=== PATIENT | male | born 1995 | race American Indian/Alaskan Native ===

== ENCOUNTER 2016-08-06 14:27 | Emergency (ER) | payer OTHER ==
[~2016-08-06] VITALS: Ht 172.7 cm; Wt 54.7 kg
[~2016-08-06 14:27] MED LIST: ANT25 PO
[2016-08-06 14:37] VITALS: TEMP 36.9; Ht 172.7 cm; Wt 54.7 kg
[2016-08-06] MEDS ORDERED: OXYCODONE HCL IR 5 MG TAB (IMMEDIATE RELEASE) PO STA (14:52)
[2016-08-06] MEDS ORDERED: ACETAMINOPHEN 500 MG TAB PO STA (14:52)
--- NOTE | 2016-08-06 15:25 | DIAGNOSTIC IMAGING REPORT ---
CT SCAN OF THE BRAIN WITHOUT IV CONTRAST CLINICAL HISTORY: Headache. Seizure. COMPARISON STUDY: CT of the brain dated 02/06/2015. TECHNIQUE: Unenhanced axial CT scan of the brain is performed from the vertex to the skull base. Automated dose control exposure was utilized. CT DOSE: 979.52 mGy.cm FINDINGS: Brain parenchyma: The brain parenchyma is normal in appearance. There is no hemorrhage, mass effect, or evidence of acute territorial ischemia by CT criteria. Hood-white matter is preserved. No extra-axial fluid collection is seen. Ventricles, sulci, cisterns: Normal in configuration. Intracranial vasculature: The visualized intracranial vasculature at the skull base is normal in appearance. Calvarium: Unremarkable. Sinuses and mastoids: The visualized paranasal sinuses are clear. The mastoid air cells are well pneumatized. Orbits: The bony orbits are grossly intact. IMPRESSION: No acute intracranial abnormality. Electronically signed by: Juni Ornelas M.D. 08/06/2016 3:24 PM Dictated Date/Time: 08/06/2016 3:22 PM
--- NOTE | 2016-08-06 15:51 | DIAGNOSTIC IMAGING REPORT ---
CT OF THE CERVICAL SPINE CLINICAL HISTORY: Neck pain status post trauma COMPARISON STUDY: Conventional radiographic study dated 04/14/2015 CT DOSE: TECHNIQUE: CT scan of the cervical spine was performed from the skull base to the thoracic inlet. Images are reviewed in the axial, sagittal, and coronal planes. IV contrast was not administered for this examination. FINDINGS: The visualized portions of the lung apices reveal no evidence of pneumothorax. The prevertebral soft tissues are normal. No fractures or subluxations are visualized. The study is compromised due to motion artifact which is most pronounced at the C3 level. There is reversal normal cervical lordosis, likely secondary to muscle spasm or positioning. IMPRESSION: 1. Study compromised secondary to patient motion 2. Reversal of the normal cervical lordosis, likely secondary to muscle spasm or patient positioning 3. No acute fractures or traumatic subluxations identified Electronically signed by: Nabeel Machuca M.D. 08/06/2016 3:33 PM Dictated Date/Time: 08/06/2016 3:24 PM
--- NOTE | 2016-08-06 15:59 | EMERGENCY ROOM VISIT NOTE ---
History Report prepared by Martine: Gabi Tate Under the Supervision of: Dr. Ru Lyons M.D. First contact with patient: 14:45 Chief Complaint: SEIZURE Stated Complaint: SEIZURE, CONCUSSION History of Present Illness The patient is a 20 year old male who presents to the Emergency Room with complaints of a seizure occurring a few minutes prior to arrival. He has a history of seizures. His last seizure was about a month ago. He took his antiseizure medication as prescribed. He is not sure how long the seizure episode lasted today. He fell and hit his head. He currently complains of a headache and light sensitivity. He also reports tiredness. He denies any fevers , nausea, vomiting, abdominal pain, or any other complaints. He also denies any drug or alcohol use. Source of History: patient Onset: a few minutes prior to arrival Position: other (global) Quality: other (seizure) Associated Symptoms: + headache, No abdominal pain, No fevers, No nausea, No vomiting Review of Systems See HPI for pertinent positives & negatives. A total of 10 systems reviewed and were otherwise negative. Past Medical & Surgical Medical Problems: (1) Expressive aphasia syndrome (2) Seizure (3) Syncope (4) Syncope (5) Syncope (6) TIA (transient ischemic attack) (7) Vomiting (8) Vomiting Family History Diabetes mellitus Heart disease Social History Smoking Status: Never Smoker Alcohol Use: none Drug Use: none Marital Status: single Housing Status: lives with roommate Occupation Status: student Current/Historical Medications Scheduled PRN Meclizine HCl (Meclizine HCl), 1 TAB PO Q6 PRN for Dizziness or Vertigo Allergies Coded Allergies: No Known Allergies (Unverified , 08/06/16) Physical Exam Vital Signs Date Time Temp Pulse Resp B/P Pulse Ox O2 Delivery O2 Flow Rate FiO2 08/06/16 16:27 70 18 120/75 99 08/06/16 14:37 36.9 68 20 126/80 98 Room Air Physical Exam GENERAL: Patient is well appearing and in mild distress. HEAD: No acute trauma, normocephalic atraumatic. Tenderness behind the right mandible. ENT: Mucous membranes moist, no nasal congestion. EYES: Equal/Reactive Bilaterally, No scleral icterus, Normal ROM NECK: No nuchal rigidity, no meningismus, trachea is midline, full ROM LUNGS: No dyspnea. Clear to auscultation and equal bilaterally. No wheeze, no rhonchi. HEART: Regular rate and rhythm. No murmurs, rubs, gallops appreciated. ABDOMEN: Soft, nontender, bowel sounds positive, no masses appreciated, no peritonitis. BACK: No midline tenderness, no CVA tenderness EXTREMITIES: Normal motion all extremities, no cyanosis, no edema. NEUROLOGIC: Awake, Alert, Oriented, no acute motor or sensory deficits, no focal weakness, cranial nerves grossly intact. SKIN: No rash, no jaundice, no diaphoresis. Medical Decision & Procedures ER Provider Diagnostic Interpretation: CT results as stated below per interpretation by me and the radiologist: CT SCAN OF THE BRAIN WITHOUT IV CONTRAST CLINICAL HISTORY: Headache. Seizure. COMPARISON STUDY: CT of the brain dated 02/06/2015. TECHNIQUE: Unenhanced axial CT scan of the brain is performed from the vertex to the skull base. Automated dose control exposure was utilized. CT DOSE: 979.52 mGy.cm FINDINGS: Brain parenchyma: The brain parenchyma is normal in appearance. There is no hemorrhage, mass effect, or evidence of acute territorial ischemia by CT criteria. Hood-white matter is preserved. No extra-axial fluid collection is seen. Ventricles, sulci, cisterns: Normal in configuration. Intracranial vasculature: The visualized intracranial vasculature at the skull base is normal in appearance. Calvarium: Unremarkable. Sinuses and mastoids: The visualized paranasal sinuses are clear. The mastoid air cells are well pneumatized. Orbits: The bony orbits are grossly intact. IMPRESSION: No acute intracranial abnormality. Electronically signed by: Juni Ornelas M.D. 08/06/2016 3:24 PM Dictated Date/Time: 08/06/2016 3:22 PM Medications Administered Medications (Trade) Dose Ordered Sig/Stacy Route Start Time Stop Time Status Last Admin Dose Admin Oxycodone HCl (Roxicodone Immediate Rel Tab) 5 mg NOW STAT PO 08/06/16 14:52 08/06/16 14:54 DC 08/06/16 15:04 5 MG Acetaminophen (Tylenol Tab) 1,000 mg NOW STAT PO 08/06/16 14:52 08/06/16 14:54 DC 08/06/16 15:04 1,000 MG ED Course 1445: The patient was evaluated in room A03. A complete history and physical exam was performed. 1452: Tylenol Tab 1000 mg PO, Oxycodone HCl 5 mg PO 1604: Reevaluated the patient who is feeling much better. Discussed results and discharge instructions: He verbalized understanding and agreement. The patient is ready for discharge. His mother is at bedside. Medical Decision Differential: Headache, Migraine, Cluster Headache, Seizure, Meningitis, Sinusitis, CO exposure, ICH/SAH, Infectious, Tumor, Sinus Thrombosis, Arterial Dissection, amongst other pathologies entertained. 20 yr old male with long history of seizures already on lamictal and previous seizure 1 month ago. Another seizure today with striking head. Since with headache and some photophobia. He has no evidnece of meningitis. No focal neuro deficits. Does have some mild right neck pain with no midline TTP nor neuro deficits. CT head/cspine negative for acute injury. He is feeling vastly improved and smiling/laughing. Likely concussion and post seizure headache. With feeling well and no fever nor another other findings seems reasonable treating conservatively. Will be going home with mother. The patient is well hydrated, happy, breathing comfortably and in no distress. They are not septic and are stable at discharge. Impression Primary Impression: Concussion Additional Impressions: Head injury, closed Status post seizure Scribe Attestation The scribe's documentation has been prepared under my direction and personally reviewed by me in its entirety. I confirm that the note above accurately reflects all work, treatment, procedures, and medical decision making performed by me. Departure Information Dispostion Home / Self-Care Referrals [facility] (PCP) Forms HOME CARE DOCUMENTATION FORM, IMPORTANT VISIT INFORMATION Patient Instructions ED Concussion, My [facility] Additional Instructions Continue to follow with [facility] for further evaluation. Rest and keep well hydrated over the next few days. Problem Qualifiers Primary Impression: Concussion Encounter type: initial encounter Loss of consciousness presence/duration: without LOC Qualified Codes: S06.0X0A - Concussion without loss of consciousness, initial encounter Additional Impressions: Head injury, closed Encounter type: initial encounter Qualified Codes: S09.90XA - Unspecified injury of head, initial encounter
[2016-08-06 16:27] VITALS: BP 120/75; PULSE 70; O2SAT 99
== END 2016-08-06 16:28 | disposition home or self-care (01) ==
LOC: C.EDB 14:30 → C.EDA 16:28
DX: S06.0X0A Concussion without loss of consciousness, initial encounter (principal); W19.XXXA Unspecified fall, initial encounter; R56.9 Unspecified convulsions; Z86.73 Personal history of transient ischemic attack (TIA), and cerebral infarction without residual deficits; F80.1 Expressive language disorder; Z83.3 Family history of diabetes mellitus; Z82.49 Family history of ischemic heart disease and other diseases of the circulatory system; Z79.899 Other long term (current) drug therapy

== ENCOUNTER 2017-09-03 17:00 | Emergency (ER) | payer OTHER ==
[~2017-09-03] VITALS: Ht 175.3 cm; Wt 64.5 kg
[2017-09-03 17:08] VITALS: TEMP 37.1; O2SAT 98; Ht 175.3 cm; Wt 64.5 kg
[2017-09-03] MEDS ORDERED: SODIUM CHLORIDE 0.9% 1000ML 1,000 ML IV STA (17:09)
--- NOTE | 2017-09-03 17:20 | EMERGENCY ROOM VISIT NOTE ---
History Report prepared by Martine: Oralia Quinonez Under the Supervision of: Dr. Ru Lyons M.D. First contact with patient: 17:02 Chief Complaint: SEIZURE Stated Complaint: SEIZURE History of Present Illness The patient is a 21 year old male who presents to the Emergency Room with complaints of an episode of seizure occurring 35 minutes [employer]. Per EMS, the patient was in class. He was called up to the front of the class and he fell and began seizing. Witnesses reported that seizure-like activity lasted for about 30 seconds. The patient is currently complaining of a right-sided headache and generalized pain. He has a history of seizures and is on Lamictal. He states that he has had a seizure in the past couple of months. The HPI is limited secondary to post ictal state. Source of History: patient, EMS History Limited By: other (post-ictal) Onset: 35 minutes [employer] Position: other (global) Quality: other (seizure) Timing: other (episode) Modifying Factors (Relieving): other (time) Associated Symptoms: + headache Review of Systems Limited secondary to post-ictal state. Past Medical & Surgical Medical Problems: (1) Expressive aphasia syndrome (2) Seizure (3) Syncope (4) Syncope (5) Syncope (6) TIA (transient ischemic attack) (7) Vomiting (8) Vomiting Family History Diabetes mellitus Heart disease Social History Smoking Status: Never Smoker Alcohol Use: none Drug Use: none Marital Status: single Housing Status: lives with roommate Occupation Status: student Current/Historical Medications Scheduled Lamotrigine (Lamictal), 150 MG PO BID Topiramate (Topamax), 100 MG PO BID Scheduled PRN Meclizine HCl (Meclizine HCl), 1 TAB PO Q6 PRN for Dizziness or Vertigo Allergies Coded Allergies: No Known Allergies (Unverified , 09/03/17) Physical Exam Vital Signs Date Time Temp Pulse Resp B/P (MAP) Pulse Ox O2 Delivery O2 Flow Rate FiO2 09/03/17 19:03 65 18 121/77 98 09/03/17 17:08 37.1 73 12 113/76 96 Room Air 09/03/17 17:08 98 Room Air Physical Exam GENERAL: Patient is post ictal, tired appearing. EYES: No scleral icterus, unremarkable pupils. ENT: Mucous membranes moist, no nasal congestion. NECK: No masses appreciated, no meningismus, trachea is midline. RESPIRATORY: No dyspnea. Clear to auscultation and equal bilaterally. No wheeze , no rhonchi. CARDIOVASCULAR: Regular rate and rhythm. No murmurs, rubs, gallops appreciated. GASTROINTESTINAL: Abdomen soft, nontender, no peritonitis. Bowel sounds positive. No masses appreciated. BACK: No midline tenderness, no CVA tenderness EXTREMITIES: Normal motion all extremities, no cyanosis, no edema. NEUROLOGIC: Pt post ictal, answering questions in simple one word sentences. No acute motor or sensory deficits, no focal weakness, cranial nerves grossly intact. SKIN: No rash, no jaundice, no diaphoresis. Medical Decision & Procedures ER Provider Diagnostic Interpretation: Radiology results and stated below per my review and radiologist interpretation: HEAD WITHOUT CONTRAST (CT) CT DOSE: 537.48 mGy.cm HISTORY: Seizure seizure, post - ictal TECHNIQUE: Multiaxial CT images of the head were performed without the use of intravenous contrast. A dose lowering technique was utilized adhering to the principles of ALARA. Comparison: 08/06/2016 Findings: The paranasal sinuses and mastoid air cells are clear. The calvarium and skull base are intact. The ventricles and sulci are within normal limits. There is no mass, hematoma, midline shift, or acute infarct. Impression: No acute intracranial abnormality. The above report was generated using voice recognition software. It may contain grammatical, syntax or spelling errors. Electronically signed by: Shaji Metcalf M.D. 09/03/2017 5:33 PM Dictated Date/Time: 09/03/2017 5:32 PM Laboratory Results 09/03/17 16:51 Red Blood Count 5.41, Mean Corpuscular Volume 82.3, Mean Corpuscular Hemoglobin 28.7, Mean Corpuscular Hemoglobin Concent 34.8, Mean Platelet Volume 11.9, Neutrophils (%) (Auto) 54.4, Lymphocytes (%) (Auto) 37.8, Monocytes (%) (Auto) 6.9, Eosinophils (%) (Auto) 0.5, Basophils (%) (Auto) 0.2, Neutrophils # (Auto) 3.31, Lymphocytes # (Auto) 2.30, Monocytes # (Auto) 0.42, Eosinophils # (Auto) 0.03, Basophils # (Auto) 0.01 09/03/17 16:51 Test 09/03/17 16:51 White Blood Count 6.08 K/uL (4.8-10.8) Red Blood Count 5.41 M/uL (4.7-6.1) Hemoglobin 15.5 g/dL (14.0-18.0) Hematocrit 44.5 % (42-52) Mean Corpuscular Volume 82.3 fL (80-100) Mean Corpuscular Hemoglobin 28.7 pg (25-34) Mean Corpuscular Hemoglobin Concent 34.8 g/dl (32-36) Platelet Count 179 K/uL (130-400) Mean Platelet Volume 11.9 fL (7.4-10.4) Neutrophils (%) (Auto) 54.4 % Lymphocytes (%) (Auto) 37.8 % Monocytes (%) (Auto) 6.9 % Eosinophils (%) (Auto) 0.5 % Basophils (%) (Auto) 0.2 % Neutrophils # (Auto) 3.31 K/uL (1.4-6.5) Lymphocytes # (Auto) 2.30 K/uL (1.2-3.4) Monocytes # (Auto) 0.42 K/uL (0.11-0.59) Eosinophils # (Auto) 0.03 K/uL (0-0.5) Basophils # (Auto) 0.01 K/uL (0-0.2) RDW Standard Deviation 41.4 fL (36.4-46.3) RDW Coefficient of Variation 13.8 % (11.5-14.5) Immature Granulocyte % (Auto) 0.2 % Immature Granulocyte # (Auto) 0.01 K/uL (0.00-0.02) Anion Gap 8.0 mmol/L (3-11) Est Creatinine Clear Calc Drug Dose 105.5 ml/min Estimated GFR () 122.7 Estimated GFR (Non- 105.8 BUN/Creatinine Ratio 13.8 (10-20) Calcium Level 9.3 mg/dl (8.5-10.1) Laboratory results as reviewed by me. Medications Administered Medications (Trade) Dose Ordered Sig/Stacy Route Start Time Stop Time Status Last Admin Dose Admin Sodium Chloride 1,000 ml @ 999 mls/hr Q1H1M STAT IV 09/03/17 17:09 09/03/17 18:09 DC 09/03/17 17:18 999 MLS/HR ED Course 1703: The patient was evaluated in room C9. A complete history and physical exam was performed. 170: NSS 1000 ml @ 999 mls/hr IV 1759: The patient is no longer post ictal. He is tired but answering all questions and aware of where he is. 185: I reassessed the patient at this time. He is feeling better and resting comfortably. I discussed the results and treatment plan with the patient. I answered all pertaining questions that he had. He expressed understanding and verbalized agreement. The patient will be discharged home. Medical Decision 21 yr old male arrives for evaluation following seizure while in class. Arrives quite post ictal though after some time and IV fluids patient back to normal. He initial had CT head given post-ictal which was negative along with labs were were unremarkable. Patient looks well, no distress, no further headache, neck pain, nor other complaints. Exam not consistent with meningitis. No suggestion of dissection nor thrombosis. Denies drug/etoh use. Is not septic. Wishes to go home and friends here to take him. Does not drive. States parents are aware of what happened. Medication Reconcilliation Current Medication List: was personally reviewed by me Blood Pressure Screening Patient's blood pressure: Normal blood pressure Impression Primary Impression: Seizure Additional Impression: Post-ictal state Scribe Attestation The scribe's documentation has been prepared under my direction and personally reviewed by me in its entirety. I confirm that the note above accurately reflects all work, treatment, procedures, and medical decision making performed by me. Departure Information Dispostion Home / Self-Care Referrals [facility] (PCP) Forms HOME CARE DOCUMENTATION FORM, IMPORTANT VISIT INFORMATION Patient Instructions ED Seizure Recurrent, My [facility] Problem Qualifiers
[2017-09-03 17:21] LABS: BASO % 0.2 %; BASO ABS # 0.01 K/uL (0-0.2); EOS % 0.5 %; EOS ABS # 0.03 K/uL (0-0.5); HEMATOCRIT 44.5 % (42-52); HEMOGLOBIN 15.5 g/dL (14.0-18.0); IG# 0.01 K/uL (0.00-0.02); LYMPH % 37.8 %; MEAN CELL VOLUME 82.3 fL (80-100); MEAN CORPUSCULAR HEMOGLOBIN 28.7 pg (25-34); MEAN CORPUSCULAR HGB CONC 34.8 g/dl (32-36); MEAN PLATELET VOLUME 11.9 fL (7.4-10.4); MONO % 6.9 %; MONO ABS # 0.42 K/uL (0.11-0.59); NEUT % 54.4 %; NEUT ABS # 3.31 K/uL (1.4-6.5); PLATELET COUNT 179 K/uL (130-400); RED CELL DISTRIBUTION WIDTH CV 13.8 % (11.5-14.5); RED CELL DISTRIBUTION WIDTH SD 41.4 fL (36.4-46.3); WHITE BLOOD COUNT 6.08 K/uL (4.8-10.8)
--- NOTE | 2017-09-03 17:35 | DIAGNOSTIC IMAGING REPORT ---
HEAD WITHOUT CONTRAST (CT) CT DOSE: 537.48 mGy.cm HISTORY: Seizure seizure, post - ictal TECHNIQUE: Multiaxial CT images of the head were performed without the use of intravenous contrast. A dose lowering technique was utilized adhering to the principles of ALARA. Comparison: 08/06/2016 Findings: The paranasal sinuses and mastoid air cells are clear. The calvarium and skull base are intact. The ventricles and sulci are within normal limits. There is no mass, hematoma, midline shift, or acute infarct. Impression: No acute intracranial abnormality. The above report was generated using voice recognition software. It may contain grammatical, syntax or spelling errors. Electronically signed by: Shaji Metcalf M.D. 09/03/2017 5:33 PM Dictated Date/Time: 09/03/2017 5:32 PM
[2017-09-03 17:41] LABS: CALCIUM 9.3 mg/dl (8.5-10.1); CREATININE 1.01 mg/dl (0.60-1.40); POTASSIUM 3.9 mmol/L (3.5-5.1)
[2017-09-03] MEDS ORDERED: LMC/150 PO (18:26)
[2017-09-03] MEDS ORDERED: TOPI100T20 PO (18:26)
[2017-09-03 19:03] VITALS: BP 121/77; PULSE 65; O2SAT 98
== END 2017-09-03 19:04 | disposition home or self-care (01) ==
LOC: EDBD 17:00 → C.EDC 17:01
DX: R56.9 Unspecified convulsions (principal); F80.1 Expressive language disorder; Z86.73 Personal history of transient ischemic attack (TIA), and cerebral infarction without residual deficits

== ENCOUNTER 2017-09-27 17:28 | Emergency (ER) | payer OTHER ==
[~2017-09-27] VITALS: Ht 172.7 cm; Wt 57.0 kg
[~2017-09-27 17:28] MED LIST changes: +LMC/150 PO; +TOPI100T20 PO
[2017-09-27 17:30] VITALS: Ht 172.7 cm; Wt 57.0 kg
[2017-09-27] MEDS ORDERED: METOCLOPRAMIDE HCL INJ 5 MG/ML 2 ML VIAL IV STA (18:02)
[2017-09-27] MEDS ORDERED: SODIUM CHLORIDE 0.9% 1000ML 2,000 ML IV STA (18:02)
--- NOTE | 2017-09-27 18:05 | EMERGENCY ROOM VISIT NOTE ---
History Report prepared by Martine: Chrissy Sheridan Under the Supervision of: Dr. Chaz Sy M.D. First contact with patient: 17:54 Chief Complaint: SEIZURE Stated Complaint: SEIZURE Nursing Triage Summary: patient to ED via ALS was witnessed while having a seizure. Hx of seizures, taking lamictal. Had a seizure yesterday and one today while taking a test. Reported patient turned and hit his head against the wall, now c/o headache. Lethargic for EMS, alert & oriented in ED. 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 As per EMS, he was taking a test today when he had a seizure. It is reported that the patient hit his head against the wall. He states he has a headache, has dizziness, and drowsiness. He denies any neck pain or SOB. He reports he also had a seizure yesterday but did not come into the ED. He notes he has a history of seizures and they occur about once every month. He denies missing any of his Lamictal medications. His neurologist is Dr. Jn Nagel who is in [place]. 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 Review of Systems See HPI for pertinent positives and negatives. A total of ten systems were reviewed and were otherwise negative. Past Medical & Surgical Medical Problems: (1) Expressive aphasia syndrome (2) Seizure (3) Syncope (4) Syncope (5) Syncope (6) TIA (transient ischemic attack) (7) Vomiting (8) Vomiting Family History Diabetes mellitus Heart disease Social History Smoking Status: Never Smoker Alcohol Use: none Drug Use: none Marital Status: single Housing Status: lives with roommate Occupation Status: student Current/Historical Medications Scheduled Lamotrigine (Lamictal), 25 MG PO BID Lamotrigine (Lamictal), 100 MG PO BID Lamotrigine (Lamictal), 1 TAB PO BID Topiramate (Topamax), 100 MG PO BID Allergies Coded Allergies: No Known Allergies (Unverified , 09/27/17) Physical Exam Vital Signs Date Time Temp Pulse Resp B/P (MAP) Pulse Ox O2 Delivery O2 Flow Rate FiO2 09/27/17 22:25 36.9 68 16 105/72 98 09/27/17 21:39 61 09/27/17 20:19 69 16 114/73 98 Room Air 09/27/17 19:03 68 16 100/73 98 Room Air 09/27/17 18:53 54 14 98 Room Air 09/27/17 17:40 77 09/27/17 17:30 36.9 83 23 106/70 99 Room Air Physical Exam GENERAL: Awake, alert, drowsy-appearing, in no distress HENT: Normocephalic, atraumatic. Dry mucus membranes. EYES: Normal conjunctiva. Sclera non-icteric. NECK: Supple. No nuchal rigidity. FROM. No JVD. RESPIRATORY: Clear to auscultation. CARDIAC: Regular rate, normal rhythm. Extremities warm and well perfused. Pulses equal. ABDOMEN: Soft, non-distended. No tenderness to palpation. No rebound or guarding. No masses. RECTAL: Deferred. MUSCULOSKELETAL: Chest examination reveals no tenderness. The back is symmetrical on inspection without obvious abnormality. There is no CVA tenderness to palpation. No joint edema. LOWER EXTREMITIES: Calves are equal size bilaterally and non-tender. No edema. No discoloration. NEURO: Normal sensorium. No sensory or motor deficits noted. Normal cerebellar function with [id number], alternating palms, [id number] SKIN: No rash or jaundice noted. Medical Decision & Procedures ER Provider Diagnostic Interpretation: Radiology results as stated below per my review and radiologist interpretation: BRAIN WITHOUT CONTRAST HISTORY: Mental status change Sz, ARELLANO after head strike TECHNIQUE: Multiplanar multisequence MRI of the brain was performed without the use of contrast. COMPARISON STUDY: 02/06/2015. CT brain 09/03/2017 FINDINGS: There are no areas of restricted diffusion to suggest acute infarction. The midline structures are intact. The paranasal sinuses are clear. The mastoid air cells are clear. The ventricles and sulci are within normal limits for age. There is no mass, hematoma, midline shift. The major vascular flow-voids at the skull base are well maintained. IMPRESSION: No acute intracranial abnormality. The above report was generated using voice recognition software. It may contain grammatical, syntax or spelling errors. Electronically signed by: Shaji Metcalf M.D. 09/27/2017 8:16 PM Laboratory Results 09/27/17 00:00 Red Blood Count 5.45, Mean Corpuscular Volume 82.8, Mean Corpuscular Hemoglobin 28.1, Mean Corpuscular Hemoglobin Concent 33.9, Mean Platelet Volume 12.3, Neutrophils (%) (Auto) 61.0, Lymphocytes (%) (Auto) 30.6, Monocytes (%) (Auto) 7.2, Eosinophils (%) (Auto) 0.7, Basophils (%) (Auto) 0.2, Neutrophils # (Auto) 3.57, Lymphocytes # (Auto) 1.79, Monocytes # (Auto) 0.42, Eosinophils # (Auto) 0.04, Basophils # (Auto) 0.01 09/27/17 00:00 Test 09/27/17 00:00 White Blood Count 5.85 K/uL (4.8-10.8) Red Blood Count 5.45 M/uL (4.7-6.1) Hemoglobin 15.3 g/dL (14.0-18.0) Hematocrit 45.1 % (42-52) Mean Corpuscular Volume 82.8 fL (80-100) Mean Corpuscular Hemoglobin 28.1 pg (25-34) Mean Corpuscular Hemoglobin Concent 33.9 g/dl (32-36) Platelet Count 185 K/uL (130-400) Mean Platelet Volume 12.3 fL (7.4-10.4) Neutrophils (%) (Auto) 61.0 % Lymphocytes (%) (Auto) 30.6 % Monocytes (%) (Auto) 7.2 % Eosinophils (%) (Auto) 0.7 % Basophils (%) (Auto) 0.2 % Neutrophils # (Auto) 3.57 K/uL (1.4-6.5) Lymphocytes # (Auto) 1.79 K/uL (1.2-3.4) Monocytes # (Auto) 0.42 K/uL (0.11-0.59) Eosinophils # (Auto) 0.04 K/uL (0-0.5) Basophils # (Auto) 0.01 K/uL (0-0.2) RDW Standard Deviation 40.9 fL (36.4-46.3) RDW Coefficient of Variation 13.6 % (11.5-14.5) Immature Granulocyte % (Auto) 0.3 % Immature Granulocyte # (Auto) 0.02 K/uL (0.00-0.02) Anion Gap 7.0 mmol/L (3-11) Est Creatinine Clear Calc Drug Dose 75.4 ml/min Estimated GFR () 94.8 Estimated GFR (Non- 81.8 BUN/Creatinine Ratio 14.4 (10-20) Calcium Level 8.9 mg/dl (8.5-10.1) Total Bilirubin 0.3 mg/dl (0.2-1) Direct Bilirubin < 0.1 mg/dl (0-0.2) Aspartate Amino Transf (AST/SGOT) 25 U/L (15-37) Alanine Aminotransferase (ALT/SGPT) 53 U/L (12-78) Alkaline Phosphatase 69 U/L (45-117) Total Protein 7.5 gm/dl (6.4-8.2) Albumin 4.0 gm/dl (3.4-5.0) Lipase 183 U/L (73-393) Laboratory results reviewed by me Medications Administered Medications (Trade) Dose Ordered Sig/Stacy Route Start Time Stop Time Status Last Admin Dose Admin Sodium Chloride 2,000 ml @ 999 mls/hr Q2H1M STAT IV 09/27/17 18:02 09/27/17 20:02 DC 09/27/17 18:25 999 MLS/HR Metoclopramide HCl (Reglan Inj) 10 mg NOW STAT IV 09/27/17 18:02 09/27/17 18:08 DC 09/27/17 18:25 10 MG Lamotrigine (Lamictal Tab) 150 mg NOW STAT PO 09/27/17 21:59 09/27/17 22:01 DC 09/27/17 22:24 150 MG Topiramate (Topamax Tab) 100 mg NOW STAT PO 09/27/17 21:59 09/27/17 22:01 DC 09/27/17 22:24 100 MG ECG Per My Interpretation Indication: other (seizure) Rate (beats per minute): 54 Rhythm: sinus bradycardia Findings: no acute ischemic change, other (normal axis) ED Course 1755: The patient was evaluated in room C3. A complete history and physical exam was performed. 0: I reevaluated the patient. Discussed results and discharge instructions: He verbalized understanding and agreement. The patient is ready for discharge. Medical Decision I reviewed the patient's past medical history, medications, and the nursing notes as described above. Differential diagnosis: Etiologies such as infection, hypoglycemia, electrolyte abnormalities, cardiac sources, intracerebral event, trauma, toxicologic, neurologic, as well as others were entertained. The patient is a 21-year-old gentleman with a past medical history of seizure disorder who presents to the emergency department with a seizure when he was in class per hpi. Of note, the patient also reports having a seizure yesterday. He reports that he normally has seizures approximately once a month which he has been in the emergency department here several times in the past before. He reports being compliant with his medications. Denies any alcohol or drug use. On arrival patient is drowsy but otherwise in no acute distress, afebrile stable vital signs. He is neuro intact including normal cerebellar function with [id number]-[id number], alternating palms, [id number]. Given question of head trauma in the setting of a seizure episode MRI was done given that he has had several recent CT scans in this young patient. MRI was unremarkable. Labs unremarkable. The patient continued to improve in terms of his mental status became lucid back at baseline. Parents at the bedside visiting from [place]. Discussed the case with neurology multifocal button inspector for the patient's neurologist in [place], Dr. Andrew Banerjee. Agrees that we can increase his Lamictal from 125-150 mg twice daily. Continue his Topamax. He will contact his neurologist for an earlier appointment as he is currently scheduled in October. Patient will go home where he has a roommate who will be able to monitor him. Findings and plan for follow-up reviewed with patient. Patient agreeable and d/c 'd per discharge instructions. Medication Reconcilliation Current Medication List: was personally reviewed by me Blood Pressure Screening Patient's blood pressure: Normal blood pressure Blood pressure disposition: Did not require urgent referral Impression Primary Impression: Seizure Scribe Attestation The scribe's documentation has been prepared under my direction and personally reviewed by me in its entirety. I confirm that the note above accurately reflects all work, treatment, procedures, and medical decision making performed by me. Departure Information Dispostion Home / Self-Care Prescriptions Lamotrigine (LAMICTAL) 25 Mg Tab 1 TAB PO BID for 30 Days, #60 TAB 1 Refill Take 1 tab by mouth twice daily with your current Lamictal for a total dose of 150mg twice daily. Prov: Chaz Sy M.D. 09/27/17 Referrals [facility] (PCP) Forms HOME CARE DOCUMENTATION FORM, IMPORTANT VISIT INFORMATION Patient Instructions ED Seizure Recurrent, My [facility] Additional Instructions Please follow up with your neurologist for an earlier appointment for re- evaluation. Otherwise, your exam, EKG, lab results, and MRI of your brain did not show signs of an emergent condition at this time. Increase your Lamictal to 150mg twice daily. Continue your Topamax as prescribed. Drink plenty of fluids to ensure hydration. Return to the emergency department for worsening symptoms as described in the accompanying instructions.
[2017-09-27 18:28] LABS: BASO % 0.2 %; BASO ABS # 0.01 K/uL (0-0.2); EOS % 0.7 %; EOS ABS # 0.04 K/uL (0-0.5); HEMATOCRIT 45.1 % (42-52); HEMOGLOBIN 15.3 g/dL (14.0-18.0); IG# 0.02 K/uL (0.00-0.02); LYMPH % 30.6 %; LYMPH ABS # 1.79 K/uL (1.2-3.4); MEAN CELL VOLUME 82.8 fL (80-100); MEAN CORPUSCULAR HEMOGLOBIN 28.1 pg (25-34); MEAN CORPUSCULAR HGB CONC 33.9 g/dl (32-36); MEAN PLATELET VOLUME 12.3 fL (7.4-10.4); MONO % 7.2 %; MONO ABS # 0.42 K/uL (0.11-0.59); NEUT ABS # 3.57 K/uL (1.4-6.5); PLATELET COUNT 185 K/uL (130-400); RED CELL DISTRIBUTION WIDTH CV 13.6 % (11.5-14.5); RED CELL DISTRIBUTION WIDTH SD 40.9 fL (36.4-46.3); WHITE BLOOD COUNT 5.85 K/uL (4.8-10.8)
[2017-09-27 18:50] LABS: ALT/SGPT 53 U/L (12-78); AST/SGOT 25 U/L (15-37); BLOOD UREA NITROGEN 18 mg/dl (7-18); CALCIUM 8.9 mg/dl (8.5-10.1); CARBON DIOXIDE 25 mmol/L (21-32); CREATININE 1.25 mg/dl (0.60-1.40); GLUCOSE 87 mg/dl (70-99); LIPASE 183 U/L (73-393); POTASSIUM 3.7 mmol/L (3.5-5.1); SODIUM 139 mmol/L (136-145)
[2017-09-27 18:54] LABS: ALKALINE PHOSPHATASE 69 U/L (45-117); TOTAL PROTEIN 7.5 gm/dl (6.4-8.2)
[2017-09-27] MEDS ORDERED: LAMO25TA PO ×2 (19:04→22:02)
[2017-09-27] MEDS ORDERED: LAMO100T16 PO (19:04)
--- NOTE | 2017-09-27 20:18 | DIAGNOSTIC IMAGING REPORT ---
BRAIN WITHOUT CONTRAST HISTORY: Mental status change Sz, ARELLANO after head strike TECHNIQUE: Multiplanar multisequence MRI of the brain was performed without the use of contrast. COMPARISON STUDY: 02/06/2015. CT brain 09/03/2017 FINDINGS: There are no areas of restricted diffusion to suggest acute infarction. The midline structures are intact. The paranasal sinuses are clear. The mastoid air cells are clear. The ventricles and sulci are within normal limits for age. There is no mass, hematoma, midline shift. The major vascular flow-voids at the skull base are well maintained. IMPRESSION: No acute intracranial abnormality. The above report was generated using voice recognition software. It may contain grammatical, syntax or spelling errors. Electronically signed by: Shaji Metcalf M.D. 09/27/2017 8:16 PM Dictated Date/Time: 09/27/2017 8:14 PM
[2017-09-27] MEDS ORDERED: TOPIRAMATE 100 MG TAB PO STA (21:59)
[2017-09-27 22:25] VITALS: BP 105/72; PULSE 68; TEMP 36.9; O2SAT 98
== END 2017-09-27 22:46 | disposition home or self-care (01) ==
LOC: EDBD 17:28 → C.EDC 17:29
DX: R56.9 Unspecified convulsions (principal); Z86.73 Personal history of transient ischemic attack (TIA), and cerebral infarction without residual deficits; Z83.3 Family history of diabetes mellitus; Z79.899 Other long term (current) drug therapy